=== PATIENT | male | born 1975 ===

== ENCOUNTER 2020-10-24 13:19 | Day surgery (SDC) | payer OTHER ==
[~2020-10-24] VITALS: Ht 170.2 cm; Wt 102.0 kg
[~2020-10-24 13:19] MED LIST: LINZESS290 MCG PO
--- NOTE | 2020-10-24 15:29 | NUR ---
10/24/20 1529 TRINITY RODRIGUEZ INJECTION OF AREA [facility] SIGMOID [facility] T[facility] 3CC ENDOSCOPIC MARKER USED
== END 2020-10-24 15:51 | disposition home or self-care (01) ==
LOC: ORSCSDS 13:19
PROVIDERS: Internal Medicine Gastroenterology
PROC: 0DBN8ZX Excision of Sigmoid Colon, Via Natural or Artificial Opening Endoscopic, Diagnostic (ICD-10-PCS; principal; 2020-10-24 15:00)
DX: R19.4 Change in bowel habit (principal); E66.01 Morbid (severe) obesity due to excess calories; Z68.35 Body mass index [BMI] 35.0-35.9, adult; R19.8 Other specified symptoms and signs involving the digestive system and abdomen; K64.8 Other hemorrhoids; K57.30 Diverticulosis of large intestine without perforation or abscess without bleeding; Z87.891 Personal history of nicotine dependence; Z79.899 Other long term (current) drug therapy
CPT/HCPCS: 88305; J2250; J2704; J7120